=== PATIENT | female | born 1990 | race Caucasian/White ===

== ENCOUNTER 2016-12-23 05:58 | Inpatient (IN) | payer MEDICAID ==
[~2016-12-23] VITALS: Ht 160 cm; Wt 72.6 kg
[2016-12-23 06:11] VITALS: Ht 160 cm; Wt 72.6 kg
[2016-12-23] MEDS ORDERED: LACTATED RINGER'S 1,000 ML IV SCH (06:14)
[2016-12-23] MEDS ORDERED: CARBOPROST 250 MCG INJ IM PRN ×2 (06:30→08:30)
[2016-12-23] MEDS ORDERED: MISOPROSTOL 200 MCG TAB PR PRN ×2 (06:30→08:30)
[2016-12-23] MEDS ORDERED: OXYTOCIN 30 UNITS/LR 500 ML IV SCH ×2 (06:30)
[2016-12-23] MEDS ORDERED: LIDOCAINE 1% (MPF) 30 ML INJ INJ PRN (06:30)
[2016-12-23] MEDS ORDERED: METHYLERGONOVINE 0.2 MG INJ IM PRN ×2 (06:30→08:30)
[2016-12-23] MEDS ORDERED: BUTORPHANOL 2 MG INJ IV PRN (06:30)
[2016-12-23] MEDS ORDERED: LACTATED RINGER'S 1,000 ML IV PRN (06:30)
[2016-12-23] MEDS ORDERED: OXYTOCIN 30 UNITS/LR 500 ML IV PRN ×2 (06:30→08:30)
[2016-12-23] MEDS ORDERED: PRENAT PO (06:36)
[2016-12-23 06:37] VITALS: BP 116/63; PULSE 94; RESP 20
[2016-12-23 06:43] LABS: ADD SCAN DIFF NO
[2016-12-23 06:47] LABS: BASOPHILS % 0.1 % (0.0-2.0); EOSINOPHILS # 0.1 10^3/ul (0.0-0.5); EOSINOPHILS % 0.7 % (0.0-7.0); HEMATOCRIT 32.7 % (37.0-47.0); HEMOGLOBIN 10.2 g/dl (12.0-16.0); LYMPHOCYTES # 3.1 10^3/ul (0.8-2.9); LYMPHOCYTES % 27.5 % (15.0-51.0); MEAN CORPUSCULAR HEMOGLOBIN 25.4 pg (29.0-33.0); MEAN CORPUSCULAR HGB CONC 31.2 g/dl (32.0-37.0); MEAN CORPUSCULAR VOLUME 81.3 fl (82.0-101.0); MEAN PLATELET VOLUME 10.9 fl (7.4-10.4); MONOCYTES % 9.1 % (0.0-11.0); NEUTROPHIL # 7.1 10^3/ul (1.6-7.5); NEUTROPHILS % 61.8 % (39.0-77.0); PLATELET COUNT 255 10^3/UL (140-415); RED BLOOD COUNT 4.02 10^6/ul (4.20-5.40); RED CELL DISTRIBUTION WIDTH 16.2 % (11.5-14.5); WHITE BLOOD COUNT 11.4 10^3/ul (4.8-10.8)
[2016-12-23 07:02] LABS: INR 0.93; PROTIME 12.5 Sec (12.2-14.2)
--- NOTE | 2016-12-23 07:44 | TRIAGE ---
OB Triage Datetime Report Generated by CPN: 12/23/2016 07:44 Datetime: 12/23/2016 07:31 Stage of : Recovery Pain Assessment Pain Scale: 0 Pain Presence: None/Denies Pain Type: N/A Datetime: 12/23/2016 07:16 Stage of : Recovery Pain Assessment Pain Scale: 0 Pain Presence: None/Denies Pain Type: N/A Datetime: 12/23/2016 07:10 Labor Evaluation Frequency: 1.5-2.5 Monitor Mode: External Duration (sec)2399: 80-130 Quality: Strong Pattern: Normal: <= 5 Contractions in 10 Minutes Resting Tone Emsworth: Relaxed Heart Rate FHR Baseline Rate: 130 Monitor Mode: External US Variability: Moderate 6-25 bpm Accelerations: 10X10 Decelerations: Early Category: Category I Pain Assessment Pain Scale: 10 Pain Presence: Intermittent Pain Type: Sharp; Pressure Pain Location: Abdomen Pain Relief Measures: Comfort Measures Datetime: 12/23/2016 06:59 Vaginal Exam Dilatation (cms): 10.0 Effacement (%): 100 Station: 0 Exam By: TURNER Vaginal Bleeding: None Cervix, Consistency: Soft Cervix, Position: Anterior Presentation 'A': Cephalic Datetime: 12/23/2016 06:46 Assessment Type: Admission Assessment Vaginal Bleeding: None Maternal Assessment Level of Consciousness: Fully Conscious DTR's/Clonus: DTRs 2+; No Clonus Headache: Denies Blurred Vision: No Respiratory Effort: Unlabored; Regular Rhythm; Equal Expansion Breath Sounds, Left: Clear and Equal Breath Sounds, Right: Clear and Equal Nausea/Vomiting: Denies RUQ Epigastric Pain: Denies Lower Extremities Edema: None Upper Extremities Edema: None Facial Edema: None Fall Risk Assessment History of Falling: (0) No Secondary Diagnosis: (0) No Ambulatory Aid: (0) Bedrest/Nurse Assist IV Therapy: (0) No Gait: (0) Normal/Bedrest/Immobile Mental Status: (0) Oriented to Own Ability Fall Score: 0 Fall Risk Score Definition: No Risk: No action required Datetime: 12/23/2016 06:40 Stage of : Labor Labor Evaluation Frequency: 1.5-3 Monitor Mode: External Duration (sec)2399: 60-120 Quality: Strong Pattern: Normal: <= 5 Contractions in 10 Minutes Resting Tone Emsworth: Relaxed Heart Rate FHR Baseline Rate: 130 Monitor Mode: External US Variability: Moderate 6-25 bpm Accelerations: 10X10 Decelerations: Early Category: Category I Pain Assessment Pain Scale: 9 Pain Presence: Intermittent Pain Type: Sharp; Pressure Pain Location: Abdomen Pain Relief Measures: Comfort Measures Datetime: 12/23/2016 06:26 Time of Arrival: 12/23/2016 05:50 EGA: 39.6 Arrived By: Wheelchair Arrived From: Home Chief Complaint: CXS SINCE 2199 Movement: Present Contractions: Regular Time Contractions Began: 12/22/2016 22:00 Contractions: Q5MIN Rupture of Membranes: Denies Vaginal Bleeding: None Vaginal Discharge: Denies Patient Complaints: Contractions Time Provider Notified: 12/23/2016 06:23 Provider Notified: KAUR Initial Plan: EFM, ASSESSMENT, CALL MD FOR ORDERS Datetime: 12/23/2016 06:21 Stage of : Labor Datetime: 12/23/2016 06:20 Stage of : OB Triage Assessment Type: Triage Labor Evaluation Frequency: 1-2 Monitor Mode: External Duration (sec)2399: 50-110 Quality: Strong Pattern: Tachysystole: > 5 Contractions in 10 Minutes Resting Tone Emsworth: Relaxed Heart Rate FHR Baseline Rate: 130 Monitor Mode: External US Variability: Moderate 6-25 bpm Accelerations: 10X10 Decelerations: Early Category: Category I Pain Assessment Pain Scale: 9 Pain Presence: Intermittent Pain Type: Sharp; Pressure Pain Location: Abdomen Pain Relief Measures: Comfort Measures Datetime: 12/23/2016 06:10 Assessment Type: Triage Maternal Assessment Level of Consciousness: Fully Conscious DTR's/Clonus: DTRs 2+; No Clonus Headache: Denies Blurred Vision: No Respiratory Effort: Unlabored; Regular Rhythm; Equal Expansion Breath Sounds, Left: Clear and Equal Breath Sounds, Right: Clear and Equal Nausea/Vomiting: Denies RUQ Epigastric Pain: Denies Lower Extremities Edema: None Upper Extremities Edema: None Facial Edema: None Fall Risk Assessment History of Falling: (0) No Secondary Diagnosis: (0) No Ambulatory Aid: (0) Bedrest/Nurse Assist IV Therapy: (0) No Gait: (0) Normal/Bedrest/Immobile Mental Status: (0) Oriented to Own Ability Fall Score: 0 Fall Risk Score Definition: No Risk: No action required Datetime: 12/23/2016 06:09 Vaginal Exam Dilatation (cms): 7.5 Effacement (%): 90 Station: 0 Exam By: TURNER Vaginal Bleeding: None Cervix, Consistency: Soft Cervix, Position: Anterior Datetime: 12/23/2016 06:07 Membranes Ruptured Date/Time: 12/23/2016 07:03 Membranes Rupture Method: Spontaneous Amniotic Fluid Color: Clear Amniotic Fluid Amount: Moderate Amniotic Fluid Odor: None Presentation 'A': Cephalic
--- NOTE | 2016-12-23 08:05 | LDN ---
Date/Time of Note Date/Time of Note DATE: 12/23/16 TIME: 07:59 Delivery Summary Pt pushed to a precipitous of a liveborn female , weight 3700g, Apgars 9/9 over a sterile field. Easy delivery of the head, followed by the anterior and posterior arms and remainder of the body. The was placed on the mother's abdomen and delayed cord clamping was observed for nearly a minute. The cord was then doubly clamped and cut by FOB. Cord blood was collected. An intact 3VC placenta delivered shortly thereafter while 3rd stage Pitocin was administered via IV. Fundus was noted to be firm. Inspection of the vagina and perineum revealed a small defect in the skin of the perineum and a L labial laceration which were repaired using 3-0 Chromic suture with a local anesthetic. Infant and mother recovering well in LDR. Placenta Delivered: Spontaneously Meconium: none Anesthesia type: Local Estimated blood loss: 150 Sponge & Needle done & correct: Yes All needle counts correct: Yes Any foreign bodies felt in the: No Problems: Infant Delivery Information Sex Sex: female Apgars 1 Minute: 9 5 Minute: 9 Suctioning Nose & mouth suctioned at pillo: No Delee suction performed: No Umbilical Cord Umbilical cord with: 3 Vessels Cord presentations: no nuchal cord Cord Blood was obtained: Yes Mother & Baby Disposition Disposition Mom & Baby to Maternity; Good: Yes Baby to NICU: No BUSHRA KAUR MD Dec 23, 2016 08:05
[2016-12-23] MEDS ORDERED: SENNA/DOCUSATE NA (8.6MG/50MG) TAB PO PRN (08:30)
[2016-12-23] MEDS ORDERED: DIBUCAINE 1% 30 GM OINT PR PRN (08:30)
[2016-12-23] MEDS ORDERED: LANOLIN 7 GM TUBE TOP PRN (08:30)
[2016-12-23] MEDS ORDERED: DIPHENHYDRAMINE 50 MG INJ IV PRN (08:30)
[2016-12-23] MEDS ORDERED: ONDANSETRON 4 MG INJ IV PRN (08:30)
[2016-12-23] MEDS ORDERED: ACETAMINOPHEN 325 MG TAB PO PRN (08:30)
[2016-12-23 08:55] VITALS: BP 112/56; PULSE 95; RESP 18
[2016-12-23 10:40] VITALS: BP 116/62; PULSE 95; RESP 18
[2016-12-23] MEDS: LACTATED RINGER'S 1,000 ML IV* SCH ×2 (11:25→16:05)
[2016-12-23] MEDS: IBUPROFEN 600 MG TAB PO SCH ×3 (11:26→23:34)
[2016-12-23] MEDS: BENZOCAINE 20% 56 ML SPRAY TOP PRN (11:28)
[2016-12-23 12:45] VITALS: BP 100/57; PULSE 83; RESP 18
[2016-12-23 16:47] VITALS: BP 104/55; PULSE 98; RESP 18
[2016-12-23 19:35] VITALS: BP 102/69; PULSE 95; RESP 19
[2016-12-24 00:10] VITALS: BP 112/66; PULSE 86; RESP 18
[2016-12-24 03:50] VITALS: BP 94/53; PULSE 76; RESP 18
[2016-12-24] MEDS: IBUPROFEN 600 MG TAB PO SCH ×3 (05:40→17:23)
[2016-12-24 08:11] LABS: ADD SCAN DIFF NO
[2016-12-24] MEDS: BENZOCAINE 20% 56 ML SPRAY TOP PRN (08:20)
[2016-12-24 08:21] LABS: BASOPHILS % 0.2 % (0.0-2.0); EOSINOPHILS # 0.2 10^3/ul (0.0-0.5); EOSINOPHILS % 1.7 % (0.0-7.0); HEMATOCRIT 31.9 % (37.0-47.0); HEMOGLOBIN 9.6 g/dl (12.0-16.0); LYMPHOCYTES # 3.8 10^3/ul (0.8-2.9); LYMPHOCYTES % 38.1 % (15.0-51.0); MEAN CORPUSCULAR HEMOGLOBIN 24.7 pg (29.0-33.0); MEAN CORPUSCULAR HGB CONC 30.1 g/dl (32.0-37.0); MEAN PLATELET VOLUME 11.1 fl (7.4-10.4); MONOCYTE # 0.7 10^3/ul (0.3-0.9); MONOCYTES % 7.5 % (0.0-11.0); NEUTROPHIL # 5.1 10^3/ul (1.6-7.5); NEUTROPHILS % 51.9 % (39.0-77.0); PLATELET COUNT 283 10^3/UL (140-415); RED BLOOD COUNT 3.89 10^6/ul (4.20-5.40); RED CELL DISTRIBUTION WIDTH 16.4 % (11.5-14.5); WHITE BLOOD COUNT 9.8 10^3/ul (4.8-10.8)
[2016-12-24 08:58] VITALS: BP 88/50; PULSE 71; RESP 18
--- NOTE | 2016-12-24 13:52 | PN ---
Date/Time of Note Date/Time of Note DATE: 12/24/16 TIME: 13:50 OB Subjective Subjective Subjective day 1 Afebrile abdomen soft uterus firm lochia normal extremity normal Laboratory Tests Test 12/24/16 07:35 White Blood Count 9.810^3/ul Red Blood Count 3.8910^6/ul Hemoglobin 9.6g/dl Hematocrit 31.9% Mean Corpuscular Volume 82.0fl Mean Corpuscular Hemoglobin 24.7pg Mean Corpuscular Hemoglobin Concent 30.1g/dl Red Cell Distribution Width 16.4% Platelet Count 03961^3/UL Mean Platelet Volume 11.1fl Neutrophils % 51.9% Lymphocytes % 38.1% Monocytes % 7.5% Eosinophils % 1.7% Basophils % 0.2% Nucleated Red Blood Cells % 0.0/100WBC Neutrophils # 5.110^3/ul Lymphocytes # 3.810^3/ul Monocytes # 0.710^3/ul Eosinophils # 0.210^3/ul Basophils # 0.010^3/ul Nucleated Red Blood Cells # 0.010^3/ul Current Medications Medications (Trade) Dose Ordered Sig/Halle Route PRN Reason Start Time Stop Time Status Last Admin Dose Admin Lactated Ringer's (Lr) 1,000 ml @ 125 mls/hr Q8H IV 12/23/16 06:14 12/23/16 08:09 DC 12/23/16 06:38 Butorphanol Tartrate (Stadol) 2 mg Q2H PRN IV PAIN 12/23/16 06:30 12/23/16 08:09 DC Lidocaine 30 ml 30 ml ONCE PRN INJ EPISIOTOMY/TEARING 12/23/16 06:30 12/23/16 08:09 DC Oxytocin/Lactated Ringer's 500 ml @ 125 mls/hr ONCE -MAY REPEAT X1 IV 12/23/16 06:30 12/23/16 08:09 DC 12/23/16 07:34 Oxytocin/Lactated Ringer's 500 ml @ 125 mls/hr ONCE IV 12/23/16 06:30 12/23/16 08:09 DC Lactated Ringer's 1,000 ml @ 2,000 mls/hr Q30M PRN IV PRE-EPIDURAL BOLUS 12/23/16 06:30 12/23/16 08:09 DC Oxytocin/Lactated Ringer's 500 ml @ 0 mls/hr ONCE PRN IV For Hemorrhage Management 12/23/16 06:30 12/23/16 08:09 DC 12/23/16 07:32 Methylergonovine Maleate (Methergine) 0.2 mg ONCE PRN IM VAGINAL BLEEDING 12/23/16 06:30 12/23/16 08:09 DC Carboprost Tromethamine (Hemabate) 250 mcg ONCE PRN IM VAGINAL BLEEDING 12/23/16 06:30 12/23/16 08:09 DC Misoprostol 1000 mcg 1,000 mcg ONCE PRN IA VAGINAL BLEEDING 12/23/16 06:30 12/23/16 08:08 DC Lactated Ringer's (Lr) 1,000 ml @ 125 mls/hr Q8H IV* 12/23/16 08:05 12/23/16 21:03 DC 12/23/16 11:25 Ibuprofen (Motrin) 600 mg Q6 PO 12/23/16 12:00 12/24/16 11:45 Ondansetron HCl (Zofran Inj) 4 mg Q6H PRN IV NAUSEA AND/OR VOMITING 12/23/16 08:30 Diphenhydramine HCl (Benadryl) 25 mg Q6H PRN IV PRURITUS 12/23/16 08:30 Senna/Docusate Sodium (Senokot-S) 1 tab BID PRN PO CONSTIPATION 12/23/16 08:30 Benzocaine (Dermoplast [place]) 1 spray BEDSIDE MEDICATION PRN TOP HEMORRHOID/EPISIOTMY PAIN 12/23/16 08:30 12/24/16 08:20 Dibucaine (Nupercainal) 1 applic BEDSIDE MEDICATION PRN IA HEMORRHOID/EPISIOTMY PAIN 12/23/16 08:30 12/23/16 11:27 Lanolin (Fra-T-Pbwpuz) 1 applic BEDSIDE MEDICATION PRN TOP BEDSIDE FOR [place] TO NIPPLES 12/23/16 08:30 12/23/16 11:26 Diphtheria/ Tetanus/Acell Pertussis (Adacel) 0.5 ml ONCE ONCE IM* 12/25/16 09:00 12/25/16 09:01 Acetaminophen 650 mg 650 mg Q4H PRN PO ELEVATED TEMPERATURE 12/23/16 08:30 Oxytocin/Lactated Ringer's 500 ml @ 0 mls/hr ONCE PRN IV For Hemorrhage Management 12/23/16 08:30 Methylergonovine Maleate (Methergine) 0.2 mg ONCE PRN IM VAGINAL BLEEDING 12/23/16 08:30 Carboprost Tromethamine (Hemabate) 250 mcg ONCE PRN IM VAGINAL BLEEDING 12/23/16 08:30 Misoprostol (Cytotec) 1,000 mcg ONCE PRN IA VAGINAL BLEEDING 12/23/16 08:30 RICA HUNTER MD Dec 24, 2016 13:52
--- NOTE | 2016-12-24 13:54 | PD.PPDC ---
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
--- NOTE | 2016-12-24 13:56 | DS ---
Date/Time of Note Date/Time of Note DATE: 12/24/16 TIME: 13:55 Obstetrical Discharge Record Final Diagnosis Final Diagnosis: Term delivered Condition on Discharge Physical Assessment Last Vitals: day 2 Afebrile VSS stable abdomen soft uterus firm lochia normal extremity normal brown discharged home with follow-up instruction to be seen at the clinic in 2 weeks Voiding: Yes Bowel Movement: Yes Breast: Soft, non-tender, Filling Fundus: Firm Calf Tenderness: No Patient Condition: Good RICA HUNTER MD Dec 24, 2016 13:56
[2016-12-24 16:05] VITALS: BP 98/59; PULSE 70; RESP 19
[2016-12-24 20:20] VITALS: BP 98/56; PULSE 85; RESP 19
[2016-12-25] MEDS: IBUPROFEN 600 MG TAB PO SCH ×2 (00:35→06:13)
[2016-12-25 04:00] VITALS: BP 100/61; PULSE 79; RESP 17
[2016-12-25 08:04] VITALS: BP 105/61; PULSE 80; RESP 20
[2016-12-25] MEDS ORDERED: DIPHTH/TET/ACEL PERTUSS (ADULT) 0.5 ML VIAL IM* ONE (09:00)
== END 2016-12-25 12:15 | disposition home or self-care (01) | DRG 775 ==
LOC: OBT 05:58 → L-D 06:00 → OBT 06:10 → L-D 06:10 → PP1 08:55
PROVIDERS: ADMIT Obstetrics & Gynecology; ATTEND Obstetrics & Gynecology
PROC: 10E0XZZ Delivery of Products of Conception, External Approach (ICD-10-PCS; principal; 2016-12-23)
PROC: 0UQMXZZ Repair Vulva, External Approach (ICD-10-PCS; 2016-12-23)
DX: O70.0 First degree perineal laceration during delivery (principal); Z37.0 Single live birth; Z3A.39 39 weeks gestation of pregnancy
CPT/HCPCS: 85025; 85610; 85730; 86592; 86900; 86901; 87340; 90715; G0463; J2590; J7120